=== PATIENT | female | born 1950 | race Caucasian/White ===

== ENCOUNTER 2023-05-29 10:26 | Emergency (ER) | payer MEDICARE, OTHER ==
[2023-05-29] MEDS ORDERED: Sodium Chloride 0.9% 10 ML Syringe FLUSH PRN (10:49)
[2023-05-29] MEDS ORDERED: Sodium Chloride 0.9% 2.5 ML Syringe FLUSH PRN (10:49)
[2023-05-29 11:48] LABS: BASOPHILS ABSOLUTE AUTO 0.01 K/uL (0.00-0.20); BASOPHILS PERCENT AUTO 0.1 % (0.0-1.0); EOSINOPHILS ABSOLUTE AUTO 0.03 K/uL (0.00-0.45); EOSINOPHILS PERCENT AUTO 0.4 % (0.0-6.0); HEMOGLOBIN 12.7 g/dL (12.0-16.0); LYMPHOCYTES ABSOLUTE AUTO 0.77 K/uL (1.00-4.80); MEAN CORPUSCULAR HEMOGLOBIN 29.1 pg (28.0-32.0); MEAN CORPUSCULAR HGB CONC 33.4 g/dL (32.0-36.0); MEAN CORPUSCULAR VOLUME 87.2 fL (83.0-99.0); MEAN PLATELET VOLUME 10.2 fL (9.4-12.3); MONOCYTES PERCENT AUTO 10.4 % (0.0-8.0); NEUTROPHILS ABSOLUTE AUTO 6.1 K/uL (1.8-7.7); PLATELET COUNT,PLT 266 K/uL (150-400); RED BLOOD CELL COUNT 4.36 M/uL (4.10-5.30); WHITE BLOOD CELL COUNT,WBC 7.68 K/uL (3.9-11.3)
[2023-05-29 12:17] LABS: A/G RATIO 0.8 (0.9-1.6); ALBUMIN 3.4 g/dL (3.4-5.0); BILIRUBIN TOTAL 0.7 mg/dL (0.2-1.0); CALCIUM 9.2 mg/dL (8.5-10.1); CARBON DIOXIDE,CO2 25.1 mmol/L (21.0-32.0); CREATININE 1.1 mg/dL (0.6-1.0); EST CRCL DRUG DOSING (CG) 43.91 mL/min; MAGNESIUM 1.9 mg/dL (1.8-2.4); PROTEIN TOTAL,TP 7.5 g/dL (6.4-8.2); TSH ULTRASENSITIVE 0.05 uIU/mL (0.36-3.74)
[2023-05-29 12:33] LABS: T4 FREE 1.96 ng/dL (0.76-1.46)
[2023-05-29 12:47] LABS: APPEARANCE,URINE SLT CLOUDY; BILIRUBIN,URINE NEGATIVE (NEGATIVE); COLOR,URINE YELLOW; GLUCOSE,URINE NEGATIVE (NEGATIVE); KETONES,URINE NEGATIVE (NEGATIVE); LEUKOCYTE ESTERASE,URINE MODERATE (NEGATIVE); NITRITE,URINE NEGATIVE (NEGATIVE); OCCULT BLOOD,URINE TRACE-INTACT (NEGATIVE); PROTEIN,URINE NEGATIVE (NEGATIVE); UROBILINOGEN,URINE 0.2 EU/dL (<2.0)
[2023-05-29 13:00] LABS: BACTERIA,URINE FEW (NEGATIVE); EPITHELIAL CELLS,URINE FEW (NONE-FEW)
== END 2023-05-29 15:45 | disposition home or self-care (01) ==
LOC: MW.ED 10:26
DX: F03.90 Unspecified dementia, unspecified severity, without behavioral disturbance, psychotic disturbance, mood disturbance, and anxiety (principal); F22 Delusional disorders
CPT/HCPCS: 36415; 70450; 80053; 81001; 83735; 84439; 84443; 85025; 99285; J3490; 99282

== ENCOUNTER 2023-06-11 21:33 | Inpatient (IN) | payer MEDICARE, OTHER ==
[2023-06-11 22:54] LABS: BASOPHILS ABSOLUTE AUTO 0.02 K/uL (0.00-0.20); BASOPHILS PERCENT AUTO 0.2 % (0.0-1.0); EOSINOPHILS ABSOLUTE AUTO 0.08 K/uL (0.00-0.45); EOSINOPHILS PERCENT AUTO 0.9 % (0.0-6.0); HEMATOCRIT 39.6 % (37.0-47.0); HEMOGLOBIN 13.2 g/dL (12.0-16.0); IMMATURE GRAN ABSOLUTE AUTO 0.01 K/uL (0.00-0.05); IMMATURE GRAN PERCENT AUTO 0.1 % (0.0-0.4); LYMPHOCYTES ABSOLUTE AUTO 1.11 K/uL (1.00-4.80); LYMPHOCYTES PERCENT AUTO 12.7 % (24.0-44.0); MEAN CORPUSCULAR HEMOGLOBIN 29.3 pg (28.0-32.0); MEAN CORPUSCULAR HGB CONC 33.3 g/dL (32.0-36.0); MEAN PLATELET VOLUME 10.6 fL (9.4-12.3); MONOCYTES ABSOLUTE AUTO 0.59 K/uL (0.00-0.80); MONOCYTES PERCENT AUTO 6.7 % (0.0-8.0); NEUTROPHILS ABSOLUTE AUTO 6.96 K/uL (1.80-7.70); NEUTROPHILS PERCENT AUTO 79.4 % (41.0-71.0); PLATELET COUNT,PLT 229 K/uL (150-400); WHITE BLOOD CELL COUNT,WBC 8.77 K/uL (3.9-11.3)
[2023-06-11 22:59] LABS: APPEARANCE,URINE CLEAR; BILIRUBIN,URINE NEGATIVE (NEGATIVE); COLOR,URINE YELLOW; GLUCOSE,URINE NEGATIVE (NEGATIVE); KETONES,URINE NEGATIVE (NEGATIVE); LEUKOCYTE ESTERASE,URINE TRACE (NEGATIVE); NITRITE,URINE NEGATIVE (NEGATIVE); OCCULT BLOOD,URINE NEGATIVE (NEGATIVE); PROTEIN,URINE NEGATIVE (NEGATIVE); UROBILINOGEN,URINE 0.2 EU/dL (<2.0)
[2023-06-11 23:09] LABS: BACTERIA,URINE RARE (NEGATIVE); EPITHELIAL CELLS,URINE RARE (NONE-FEW); RBC,URINE 0-1 (0-2/HPF); WBC,URINE 0-2 (0-5/HPF)
[2023-06-11 23:15] LABS: BLOOD UREA NITROGEN,BUN 18 mg/dL (7.0-18.0); CALCIUM 9.1 mg/dL (8.5-10.1); CARBON DIOXIDE,CO2 26.4 mmol/L (21.0-32.0); CHLORIDE,CL 102 mmol/L (98-107); CREATININE 1.1 mg/dL (0.6-1.0); GLUCOSE RANDOM 91 mg/dL (74-106); POTASSIUM,K 3.9 mmol/L (3.5-5.1); SODIUM,NA 140 mmol/L (136-145)
[2023-06-11 23:22] LABS: ESTIMATED GFR 54 mL/min (>60)
[2023-06-12 08:23] LABS: BASOPHILS ABSOLUTE AUTO 0.03 K/uL (0.00-0.20); BASOPHILS PERCENT AUTO 0.4 % (0.0-1.0); EOSINOPHILS ABSOLUTE AUTO 0.04 K/uL (0.00-0.45); EOSINOPHILS PERCENT AUTO 0.6 % (0.0-6.0); HEMATOCRIT 42.1 % (37.0-47.0); HEMOGLOBIN 14.1 g/dL (12.0-16.0); IMMATURE GRAN ABSOLUTE AUTO 0.02 K/uL (0.00-0.05); IMMATURE GRAN PERCENT AUTO 0.3 % (0.0-0.4); LYMPHOCYTES ABSOLUTE AUTO 0.94 K/uL (1.00-4.80); LYMPHOCYTES PERCENT AUTO 13.6 % (24.0-44.0); MEAN CORPUSCULAR HEMOGLOBIN 29.4 pg (28.0-32.0); MEAN CORPUSCULAR HGB CONC 33.5 g/dL (32.0-36.0); MEAN CORPUSCULAR VOLUME 87.7 fL (83.0-99.0); MEAN PLATELET VOLUME 10.6 fL (9.4-12.3); MONOCYTES ABSOLUTE AUTO 0.58 K/uL (0.00-0.80); MONOCYTES PERCENT AUTO 8.4 % (0.0-8.0); NEUTROPHILS ABSOLUTE AUTO 5.32 K/uL (1.80-7.70); NEUTROPHILS PERCENT AUTO 76.7 % (41.0-71.0); PLATELET COUNT,PLT 287 K/uL (150-400); WHITE BLOOD CELL COUNT,WBC 6.93 K/uL (3.9-11.3)
[2023-06-12] MEDS: Levothyroxine 125 MCG Tab PO SCH (08:59)
[2023-06-12 09:12] LABS: CALCIUM 9.4 mg/dL (8.5-10.1); CREATININE 1.1 mg/dL (0.6-1.0); EST CRCL DRUG DOSING (CG) 43.91 mL/min; POTASSIUM,K 4.3 mmol/L (3.5-5.1); TSH ULTRASENSITIVE 0.03 uIU/mL (0.36-3.74)
[2023-06-12 10:03] LABS: T4 FREE 1.54 ng/dL (0.76-1.46)
[2023-06-12] MEDS ORDERED: Acetaminophen 325 MG Tab PO PRN (17:01)
[2023-06-12] MEDS ORDERED: Ondansetron 4 MG Tab.DIS PO PRN (17:02)
[2023-06-12] MEDS: Topiramate 50 MG Tab PO SCH (20:55)
[2023-06-12] MEDS: Donepezil 5 MG Tab PO SCH (20:55)
[2023-06-12] MEDS: QUEtiapine 25 MG Tab PO SCH (20:55)
[2023-06-12] MEDS: atorvaSTATin 20 MG Tab PO SCH (20:55)
[2023-06-12] MEDS: Sertraline 25 MG Tab PO SCH (20:56)
[2023-06-12] MEDS ORDERED: QUEtiapine 25 MG Tab PO SCH (21:00)
[2023-06-13 06:20] LABS: BASOPHILS ABSOLUTE AUTO 0.02 K/uL (0.00-0.20); BASOPHILS PERCENT AUTO 0.4 % (0.0-1.0); EOSINOPHILS ABSOLUTE AUTO 0.09 K/uL (0.00-0.45); EOSINOPHILS PERCENT AUTO 1.9 % (0.0-6.0); HEMATOCRIT 38.3 % (37.0-47.0); HEMOGLOBIN 12.7 g/dL (12.0-16.0); IMMATURE GRAN ABSOLUTE AUTO 0.01 K/uL (0.00-0.05); IMMATURE GRAN PERCENT AUTO 0.2 % (0.0-0.4); LYMPHOCYTES ABSOLUTE AUTO 1.32 K/uL (1.00-4.80); LYMPHOCYTES PERCENT AUTO 27.4 % (24.0-44.0); MEAN CORPUSCULAR HEMOGLOBIN 29.6 pg (28.0-32.0); MEAN CORPUSCULAR HGB CONC 33.2 g/dL (32.0-36.0); MEAN CORPUSCULAR VOLUME 89.3 fL (83.0-99.0); MEAN PLATELET VOLUME 10.6 fL (9.4-12.3); MONOCYTES ABSOLUTE AUTO 0.58 K/uL (0.00-0.80); MONOCYTES PERCENT AUTO 12.1 % (0.0-8.0); NEUTROPHILS ABSOLUTE AUTO 2.79 K/uL (1.80-7.70); PLATELET COUNT,PLT 241 K/uL (150-400); RED BLOOD CELL COUNT 4.29 M/uL (4.10-5.30); WHITE BLOOD CELL COUNT,WBC 4.81 K/uL (3.9-11.3)
[2023-06-13 06:44] LABS: CALCIUM 8.9 mg/dL (8.5-10.1); CARBON DIOXIDE,CO2 25.6 mmol/L (21.0-32.0); CREATININE 0.9 mg/dL (0.6-1.0); EST CRCL DRUG DOSING (CG) 53.67 mL/min
[2023-06-13] MEDS: Topiramate 50 MG Tab PO SCH ×2 (08:17→20:59)
[2023-06-13] MEDS: Levothyroxine 125 MCG Tab PO SCH (08:18)
[2023-06-13] MEDS: Thiamine 100 MG Tab PO SCH (08:19)
[2023-06-13] MEDS: Folic Acid 1 MG Tab PO SCH (08:19)
[2023-06-13] MEDS: Cholecalciferol (Vitamin D3) 25 MCG Tab PO SCH (08:21)
[2023-06-13] MEDS ORDERED: LORazepam 1 MG Tab PO ONE (17:04)
[2023-06-13] MEDS: QUEtiapine 25 MG Tab PO SCH (20:59)
[2023-06-13] MEDS: Donepezil 5 MG Tab PO SCH (20:59)
[2023-06-13] MEDS: Sertraline 25 MG Tab PO SCH (21:00)
[2023-06-13] MEDS: atorvaSTATin 20 MG Tab PO SCH (21:00)
[2023-06-14] MEDS: Levothyroxine 125 MCG Tab PO SCH (08:05)
[2023-06-14] MEDS: Cholecalciferol (Vitamin D3) 25 MCG Tab PO SCH (08:06)
[2023-06-14] MEDS: Folic Acid 1 MG Tab PO SCH (08:06)
[2023-06-14] MEDS: Thiamine 100 MG Tab PO SCH (08:06)
[2023-06-14] MEDS: Topiramate 50 MG Tab PO SCH ×2 (08:08→20:32)
[2023-06-14] MEDS: Donepezil 5 MG Tab PO SCH (20:31)
[2023-06-14] MEDS: atorvaSTATin 20 MG Tab PO SCH (20:31)
[2023-06-14] MEDS: QUEtiapine 25 MG Tab PO SCH (20:31)
[2023-06-14] MEDS: Sertraline 25 MG Tab PO SCH (20:33)
[2023-06-15] MEDS: Levothyroxine 125 MCG Tab PO SCH (06:44)
[2023-06-15] MEDS: Thiamine 100 MG Tab PO SCH (08:27)
[2023-06-15] MEDS: Topiramate 50 MG Tab PO SCH ×2 (08:27→21:10)
[2023-06-15] MEDS: Folic Acid 1 MG Tab PO SCH (08:27)
[2023-06-15] MEDS: Cholecalciferol (Vitamin D3) 25 MCG Tab PO SCH (08:27)
[2023-06-15] MEDS: QUEtiapine 25 MG Tab PO SCH (21:11)
[2023-06-15] MEDS: Sertraline 25 MG Tab PO SCH (21:11)
[2023-06-15] MEDS: Donepezil 5 MG Tab PO SCH (21:12)
[2023-06-15] MEDS: atorvaSTATin 20 MG Tab PO SCH (21:12)
[2023-06-16] MEDS: Levothyroxine 125 MCG Tab PO SCH (08:23)
[2023-06-16] MEDS: Cholecalciferol (Vitamin D3) 25 MCG Tab PO SCH (09:26)
[2023-06-16] MEDS: Folic Acid 1 MG Tab PO SCH (09:26)
[2023-06-16] MEDS: Thiamine 100 MG Tab PO SCH (09:27)
[2023-06-16] MEDS: Topiramate 50 MG Tab PO SCH (09:27)
== END 2023-06-16 14:30 | disposition home or self-care (01) | DRG 57 ==
LOC: MW.ED 21:33 → MW.MS 06-12 02:00 → OBSVTOIN 06-12 18:14
PROVIDERS: ADMIT Internal Medicine; ATTEND Internal Medicine
DX: F91.9 Conduct disorder, unspecified (principal); G30.9 Alzheimer's disease, unspecified; F02.80 Dementia in other diseases classified elsewhere, unspecified severity, without behavioral disturbance, psychotic disturbance, mood disturbance, and anxiety; F02.818 Dementia in other diseases classified elsewhere, unspecified severity, with other behavioral disturbance; F31.60 Bipolar disorder, current episode mixed, unspecified; I10 Essential (primary) hypertension; Z66 Do not resuscitate; E78.00 Pure hypercholesterolemia, unspecified; Z79.899 Other long term (current) drug therapy
CPT/HCPCS: 36415 ×2; 80048 ×2; 81001; 84439; 84443; 85025 ×2; 99285; A9270; 99283; G0378